=== PATIENT | female | born 1970 | race Caucasian/White ===

== ENCOUNTER → 2016-10-23 | Outpatient (CLI) | payer BC ==
[2016-10-24 15:20] LABS: GO23910 SEE COMMENTS (())
== END ==
LOC: LAB 08:35
PROVIDERS: ATTEND Internal Medicine Endocrinology, Diabetes & Metabolism
DX: E10.49 Type 1 diabetes mellitus with other diabetic neurological complication (principal); E03.8 Other specified hypothyroidism; E06.3 Autoimmune thyroiditis
CPT/HCPCS: 36415; 82985

== ENCOUNTER → 2017-01-28 | Outpatient (CLI) | payer BC ==
--- NOTE | 2017-01-28 22:00 | DI ---
RIGHT OS CALCIS, 01/28/2017 4:38 PM: Clinical History: Right foot pain. Previous Exam: None at this facility. 2 weightbearing views of the os calcis are submitted. There is no acute soft tissue, osseous, or join t abnormality. There is a bony spur at the attachment of the Achilles tendon to the calcaneus but the Achilles tendon silhouette is not well-defined. Also, there are is calcification on the plantar aspe ct of the calcaneocuboidal joint. Reading: Bony spur at the attachment of the Achilles tendon and that tendon is not well defined. There is soft tissue calcifications on the plantar aspect of the calcaneocuboidal joint.
== END ==
LOC: MOB RAD 16:40
PROVIDERS: ATTEND Podiatrist Foot & Ankle Surgery
DX: M79.671 Pain in right foot (principal); M77.31 Calcaneal spur, right foot
CPT/HCPCS: 73650

== ENCOUNTER → 2017-02-09 | Outpatient (CLI) | payer BC ==
[2017-02-09 07:12] LABS: HEMOGLOBIN A1C 7.27 % (4.2-6.0)
[2017-02-09 07:13] LABS: CHOL/HDL RATIO 2.68 RATIO (0-4.0); LDL CHOLESTEROL,CALCULATED 55.4 mg/dL; SERUM ALBUMIN 3.8 g/dL (3.5-4.8)
== END ==
LOC: LAB 06:50
PROVIDERS: ATTEND Internal Medicine Endocrinology, Diabetes & Metabolism
DX: E10.49 Type 1 diabetes mellitus with other diabetic neurological complication (principal)
CPT/HCPCS: 36415; 80061; 80076; 83036; 84443

== ENCOUNTER → 2017-03-18 | Outpatient (CLI) | payer BC ==
--- NOTE | 2017-03-18 15:40 | EKG ---
[address] [address] Measurements Intervals [place] Rate: 62 P: 35 MD: 162 QRS: 29 QRSD: 89 T: 30 QT: 415 QTc: 419 Interpretive Statements SINUS RHYTHM Borderline POSSIBLE INFERIOR MYOCARDIAL INFARCTION [30 ms Q WAVE IN II/aVF], PROBABLY OLD Compared to ECG 06/04/2014 08:22:13 minimal change but Myocardial infarct finding now possibly present (vs septal Q waves) Electronically Signed On 03-18-17 15:50:44 MDT by Matt Mack MD [email or web address]
[2017-03-18 17:13] LABS: BASOPHILS # (AUTO) 0.03 10*3/UL; BASOPHILS % (AUTO) 0.5 % (0-1); EOSINOPHILS # (AUTO) 0.24 10*3/UL; EOSINOPHILS % (AUTO) 3.7 % (0-8); HEMATOCRIT 43.3 % (37.0-47.0); HEMOGLOBIN 13.9 g/dL (12.0-16.0); LYMPHOCYTES # (AUTO) 2.34 10*3/uL; MEAN CORPUSCULAR HEMOGLOBIN 25.9 PG (27-31); MEAN CORPUSCULAR HGB CONC 32.1 g/dL (33-37); MEAN CORPUSCULAR VOLUME 80.8 FL (81-99); MEAN PLATELET VOLUME 11.4 FL (7.4-12.2); MONOCYTES # (AUTO) 0.46 10*3/UL (0.3-0.8); NEUTROPHILS # (AUTO) 3.45 10*3/UL; NEUTROPHILS % (AUTO) 52.8 % (50-80); RED BLOOD COUNT 5.36 10^6/uL (4.20-5.40)
[2017-03-18 17:14] LABS: PLATELET MORPHOLOGY COMMENT NORMAL MORPHOLOGY (NORM); RBC MORPHOLOGY COMMENT NORMAL MORPHOLOGY (NORM); WBC MORPHOLOGY COMMENT NORMAL MORPHOLOGY (NORM)
[2017-03-18 17:22] LABS: BLOOD UREA NITROGEN 14 mg/dL (7-22); EST GLOMERULAR FILTRATION > 60 (>60 ml/min/1.73m(2)); SERUM ALBUMIN 4.3 g/dL (3.5-4.8)
[2017-03-18 17:23] LABS: HEMOGLOBIN A1C 7.31 % (4.2-6.0)
--- NOTE | 2017-03-19 10:06 | DI ---
PA /LATERAL CHEST X-RAY, 03/18/2017 3:20 PM : Clinical History: Preoperative evaluation. Previous Exam: None at this facility. There are degenerative changes of the right acromioclavicular joint. Heart size is normal. Lungs are clear. Mediastinal structures are normal. There are no pulmonary nodules. IMPRESSION: Normal chest x-ray. Degenerative changes of the right acromioclavicular joint.
== END ==
LOC: MOB EKG 15:32
PROVIDERS: ATTEND Family Medicine
DX: Z01.812 Encounter for preprocedural laboratory examination (principal); Z01.810 Encounter for preprocedural cardiovascular examination; Z01.818 Encounter for other preprocedural examination; M77.31 Calcaneal spur, right foot; E78.5 Hyperlipidemia, unspecified; E03.9 Hypothyroidism, unspecified; E04.1 Nontoxic single thyroid nodule; M19.011 Primary osteoarthritis, right shoulder; E10.9 Type 1 diabetes mellitus without complications; Z79.4 Long term (current) use of insulin
CPT/HCPCS: 36415; 71020; 80053; 83036; 84443; 85025; 93005; 93010

== ENCOUNTER → 2017-04-15 | Outpatient (CLI) | payer BC ==
[2017-04-15 10:26] LABS: BASOPHILS # (AUTO) 0.06 10*3/UL; EOSINOPHILS # (AUTO) 0.34 10*3/UL; EOSINOPHILS % (AUTO) 5.8 % (0-8); HEMATOCRIT 42.3 % (37.0-47.0); HEMOGLOBIN 13.6 g/dL (12.0-16.0); LYMPHOCYTES # (AUTO) 1.62 10*3/uL; MEAN CORPUSCULAR HEMOGLOBIN 26.2 PG (27-31); MEAN CORPUSCULAR HGB CONC 32.2 g/dL (33-37); MEAN CORPUSCULAR VOLUME 81.3 FL (81-99); MEAN PLATELET VOLUME 10.9 FL (7.4-12.2); MONOCYTES # (AUTO) 0.38 10*3/UL (0.3-0.8); MONOCYTES % (AUTO) 6.5 % (5-15); NEUTROPHILS # (AUTO) 3.42 10*3/UL; NEUTROPHILS % (AUTO) 58.7 % (50-80)
[2017-04-15 10:34] LABS: PLATELET MORPHOLOGY COMMENT NORMAL MORPHOLOGY (NORM); RBC MORPHOLOGY COMMENT NORMAL MORPHOLOGY (NORM); WBC MORPHOLOGY COMMENT NORMAL MORPHOLOGY (NORM)
[2017-04-15 10:38] LABS: BLOOD UREA NITROGEN 21 mg/dL (7-22); CHOL/HDL RATIO 2.86 RATIO (0-4.0); EST GLOMERULAR FILTRATION > 60 (>60 ml/min/1.73m(2)); HDL CHOLESTEROL 50 mg/dL (40-150); SERUM ALBUMIN 4.1 g/dL (3.5-4.8); SERUM CHOLESTEROL 143 mg/dL (120-200)
[2017-04-15 10:40] LABS: HEMOGLOBIN A1C 7.26 % (4.2-6.0)
== END ==
LOC: MOB LAB 09:52
PROVIDERS: ATTEND Family Medicine
DX: Z00.00 Encounter for general adult medical examination without abnormal findings (principal); E78.5 Hyperlipidemia, unspecified; E10.9 Type 1 diabetes mellitus without complications; Z79.4 Long term (current) use of insulin
CPT/HCPCS: 36415; 80053; 80061; 83036; 85025

== ENCOUNTER 2017-04-16 05:44 | Day surgery (SDC) | payer BC ==
[2017-04-16] MEDS ORDERED: LIDOCAINE W/ SODIUM BICARB 0.5 ML SYR ONE (05:52)
[2017-04-16] MEDS ORDERED: BUPivacaine Inj 0.5% PF (5mg/ml) 10ml vial ONE (07:10)
[2017-04-16] MEDS ORDERED: Lidocaine Inj 1% 0 ML ONE (07:10)
[2017-04-16] MEDS ORDERED: MIDAZOLAM 5 MG/1 ML ONE (07:12)
[2017-04-16] MEDS ORDERED: KETAMINE 100 MG/1 ML - 5 ML ONE (07:12)
[2017-04-16] MEDS ORDERED: fentaNYL Inj 250 MCG/5 ML VIAL ONE ×2 (07:12→08:11)
[2017-04-16] MEDS ORDERED: ROCURONIUM 10 MG/1 ML - 5 ML VIAL IVP ONE (07:13)
[2017-04-16] MEDS ORDERED: LIDOCAINE MPF 2% - 5 ML (20 MG/1 ML) ONE (07:19)
[2017-04-16] MEDS ORDERED: BUPIVACAINE 0.5% W/EPI MPF -30 ML VIAL IV ONE (07:22)
[2017-04-16] MEDS ORDERED: MEPIVACAINE HCL/PF 20 MG/1 ML IV ONE (07:23)
[2017-04-16] MEDS ORDERED: DEXAMETHASONE SOD PHOSPHATE 4 MG/1 ML VIAL ONE (07:23)
[2017-04-16] MEDS ORDERED: ceFAZolin Inj 3 GM in Sodium Chloride 0.9% 100 ML IV ONE (07:30)
[2017-04-16] MEDS ORDERED: fentaNYL Inj 100 MCG/2 ML VIAL IVP PRN (08:38)
[2017-04-16] MEDS ORDERED: Ondansetron ODT Tab 8 MG TAB PO PRN (08:38)
[2017-04-16] MEDS ORDERED: ONDANSETRON 4 MG/2 ML VIAL IVP PRN (08:38)
[2017-04-16] MEDS ORDERED: NORMAL SALINE 10 ML SYRINGE FLUSH IVP PRN ×2 (08:38→11:10)
[2017-04-16] MEDS ORDERED: HYDROmorphone 2 MG/1 ML IVP PRN (08:38)
[2017-04-16] MEDS ORDERED: ATROPINE SULFATE 0.4 MG/1 ML VIAL IVP PRN (08:38)
[2017-04-16] MEDS ORDERED: Lactated Ringers 1,000 ML PRIMARY IV SCH (08:45)
--- NOTE | 2017-04-16 08:50 | CRNA.PROCE ---
Nerve Block Documentation - - Safety Measures: Time Out Taken, Site Verified - - Type of Nerve Block Used: Right Popliteal Fossa Block (as analgesic component to achilles tendon exploration. Due to DM Type 1, ALEX,Morbid increase in BMI, prone positioning, GETA will be utilized.) Position for Nerve Block: Prone Moniters Used During Block: EKG, SPO2, NIBP Oxygen Sumpplented: Yes Sedation Used - Enter Amount in Comment Field: Midazolam (mg): Yes (2 mg), Fentanyl (mcg): Yes (50 mcgs) Skin Prep Used: ChloroPrep (Twice) Draped: No Technique: Nerve Stimulator Nerve Block Needle Used: EchoBright 100 mm Local Anesthetic - Enter Amt in Comment Field: 0.5 % Bupivicaine with Epinephrine 1:200,000 (mL): Yes (20 in 3 ml increments), 2 % Mepivacaine (mL): Yes (10 ml in 1.5 ml increments) Additives to Nerve Blocks: Dexamethasone (mL): Yes (4 mg)
[2017-04-16] MEDS ORDERED: BUPivacaine Liposome/PF (Exparel) Inj 20ml vial INFIL ONE ×2 (09:00→10:05)
[2017-04-16] MEDS ORDERED: Lactated Ringers 1,000 ML PRIMARY IV ONE (09:15)
[2017-04-16] MEDS ORDERED: HYDROcodone-APAP 10 MG-325 MG TABLET PO PRN (11:10)
--- NOTE | 2017-04-16 11:29 | GEN.OPNOTE ---
Operative Report Surgeon: Ben Jones DPM Waste Hand: Other (David Adler DPM) Anesthesia Type: General, Local (post operative exparel injected.), MAC Anesthesia Provider: Mignon Palacios CRNA Surgery Date: 04/16/17 Preoperative Diagnosis: 1. Right foot pain. 2. 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 3. Right haglunds deformity. Postoperative Diagnosis: 1. Right foot pain. 2. 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 3. Right haglunds deformity. Procedure: 1. Right repair of achilles tendonosis. cpt 03326. 2. Partial excision (Xiang's deformity) calcaneus. cpt 97541 Estimated Blood Loss (mL): 15 (pneumatic cuff on right thigh for 90 minutes at 250 mm mercury pressure) Fluids: 3 g Ancef preoperatively. 1250 mL selected Ringer's. Postoperative subcutaneous exparel. Complications: None Indications for the Procedure: Chronic right posterior foot pain. Description of Procedure: The patient was brought to the operating room and placed in the supine position. They had already been given a popliteal block of the lower extremity , and MAC was continued. The foot and right lower extremity was prepped and draped in the usual sterile fashion. A timeout was performed. Preoperative radiographs were reviewed to help delineate the area of concern, and this was marked on the foot. The foot and lower leg was then exsanguinated with an elastic Esmarch, after which a pneumatic cuff was inflated about the right thigh to 250 mmHg pressure. With the patient in the prone position a stairstep incision was made of the posterior right heel starting from proximal medial to plantar lateral over the posterior heel. There was taken was taken and a full- thickness flap down to level of the periosteum of the posterior Achilles tendon and calcaneus. With now exposure of the calcaneus and Achilles tendon insertion , the Achilles tendon was then split longitudinally, down to and including the plantar posterior periosteum of the calcaneus. Next the intratendinous calcification and posterior spurring were dissected free from the Achilles tendon. The Achilles tendon was also freed from the Xiang's deformity. This allowed removal of the prominent intratendinous spurring with a bone rongeur. This is then smoothed with a power rasp, checked with C-arm on the way. The wound was irrigated. And reviewed again until all the calcification was removed. Next was directed to have was deformity. Using a combination of rongeur and power rasp, and under C-arm guidance the bossing of the posterior cephalid calcaneus was reduced. Wound was copiously irrigated. Once it was deformity was reduced as desired, bone wax was applied to the dorsal aspect, taking care not to apply any bone wax to the area of Achilles tendon insertion. There was then again irrigated. The Achilles tendon was then reassessed and debulked from it's hypertrophy. It had some discoloration as well as hypertrophy. Its debulked and reduced the Achilles tendon was then fixated back to the calcaneus with 2 Mitex G2 anchors. After anchoring the tendon back to the Achilles tendon with the G2 anchors the pneumatic cuff was released. Bleeding was minimal and well-controlled. In the cuff was left down. The Achilles tendon was then also sutured down with 2-0 Vicryl both along its central incision and to the plantar calcaneal periosteum. It is noted that the medial and lateral flares of the Achilles tendon were kept intact to maintain appropriate length. Finally the full-thickness flap was closed with 4-0 Vicryl and then horizontal mattress sutures. A dressing of Xeroform, cast padding, Coban; followed by a posterior splint was applied to the right lower extremity. After which the patient was continually managed by anesthesia and refill return to recovery.
[2017-04-16 11:30] VITALS: RESP 12
[2017-04-16] MEDS ORDERED: ONDANSETRON 4 MG/2 ML VIAL ONE (12:39)
--- NOTE | 2017-04-16 12:45 | DI ---
RIGHT FOOT, 04/16/2017 11:10 AM: Clinical History: Right calcaneal spur. Xiang's deformity. Previous Exam: 01/28/2017. 3 views are submitted. The calcaneal spur at the distal aspect of the Achilles tendon has been resect ed. A metallic anchor is present at the site of the spur. The posterosuperior margin of the calcaneus has been partially resected. Reading: Postoperative changes as above with resection of the calcaneal spur in the superior and posterior mar gin of the calcaneus.
[2017-04-16] MEDS ORDERED: ENOXAPARIN SODIUM 40 MG/0.4 ML SYRINGE SUBCUT SCH (14:15)
[2017-04-16 15:07] VITALS: TEMP 97.2
--- NOTE | 2017-04-16 15:35 | OPS CRUTCH ---
Diagnosis : Right Achilles Debridement Referral Reason: CAM Walker O: The patient was issued a CAM walker and instructed in its proper use and care. P: No further therapy is indicated at this time. DENZELD
== END 2017-04-16 14:35 | disposition home or self-care (01) ==
LOC: SDSC 05:44
PROVIDERS: ATTEND Podiatrist Foot & Ankle Surgery
DX: M65.271 Calcific tendinitis, right ankle and foot (principal); M92.61 Juvenile osteochondrosis of tarsus, right ankle; E10.9 Type 1 diabetes mellitus without complications
CPT/HCPCS: 27654; 28120; 73630; 76000; C9290; J1650; J2704; J3010; S0020; J0670; J0690; J1100; J2001; J2250; J2405; J3490; J7050; J7120

== ENCOUNTER → 2017-06-03 | Outpatient (CLI) | payer BC ==
[2017-06-03 11:25] LABS: HEMOGLOBIN A1C 7.28 % (4.2-6.0)
[2017-06-03 11:28] LABS: BLOOD UREA NITROGEN 20 mg/dL (7-22); CALCIUM 9.8 mg/dL (8.7-10.7); CHOL/HDL RATIO 3.64 RATIO (0-4.0); EST GLOMERULAR FILTRATION > 60 (>60 ml/min/1.73m(2)); HDL CHOLESTEROL 42 mg/dL (40-150); SERUM CHOLESTEROL 153 mg/dL (120-200)
[2017-06-03 11:29] LABS: CREATININE, URINE 233.7 MG/DL (15-500)
== END ==
LOC: LAB 10:42
PROVIDERS: ATTEND Internal Medicine Endocrinology, Diabetes & Metabolism
DX: E10.49 Type 1 diabetes mellitus with other diabetic neurological complication (principal); E78.2 Mixed hyperlipidemia
CPT/HCPCS: 36415; 80048; 80061; 82043; 83036